=== PATIENT | female | born 1995 | race Caucasian/White ===

== ENCOUNTER 2016-07-16 19:06 | Emergency (ER) | payer SELFPAY ==
[~2016-07-16] VITALS: Ht 162.6 cm; Wt 53.0 kg
[2016-07-16 19:17] VITALS: Ht 162.6 cm; Wt 53.0 kg
[2016-07-16] MEDS ORDERED: METOCLOPRAMIDE 10 MG INJ IV STA (20:21)
[2016-07-16] MEDS ORDERED: DIPHENHYDRAMINE 50 MG INJ IV STA (20:21)
[2016-07-16] MEDS ORDERED: KETOROLAC 30 MG INJ IV STA (20:21)
[2016-07-16] MEDS ORDERED: SOD CHLORIDE 0.9% 1,000 ML IV STA (20:21)
[2016-07-16 21:17] LABS: BASOPHILS % 0.2 % (0.0-2.0); EOSINOPHILS # 0.2 10^3/ul (0.0-0.5); HEMATOCRIT 41.4 % (37.0-47.0); HEMOGLOBIN 13.8 g/dl (12.0-16.0); LYMPHOCYTES # 2.5 10^3/ul (0.8-2.9); LYMPHOCYTES % 30.6 % (18.0-55.0); MEAN CORPUSCULAR HEMOGLOBIN 30.2 pg (29.0-33.0); MEAN CORPUSCULAR HGB CONC 33.4 g/dl (32.0-37.0); MEAN CORPUSCULAR VOLUME 90.5 fl (72.0-104.0); MEAN PLATELET VOLUME 9.3 fl (7.4-10.4); MONOCYTE # 0.8 10^3/ul (0.3-0.9); MONOCYTES % 9.3 % (0.0-13.0); NEUTROPHIL # 4.7 10^3/ul (1.6-7.5); NEUTROPHILS % 57.9 % (30.0-74.0); PLATELET COUNT 242 10^3/UL (140-440); RED BLOOD COUNT 4.57 10^6/ul (4.20-5.40); RED CELL DISTRIBUTION WIDTH 13.4 % (11.5-14.5); UNCORRECTED WBC 8.1 10^3/ul (4.8-10.8); WHITE BLOOD COUNT 8.1 10^3/ul (4.8-10.8)
[2016-07-16 21:26] LABS: POTASSIUM 3.5 mmol/L (3.5-5.1)
[2016-07-16 21:27] LABS: CONDITION 1
[2016-07-16 21:28] LABS: CREATININE 0.61 mg/dl (0.44-1.00)
[2016-07-16] MEDS ORDERED: ASPI1TAB30 PO (22:10)
--- NOTE | 2016-07-16 22:15 | ERD ---
ER Documentation Chief Complaint Date/Time DATE: 07/16/16 TIME: 22:12 Chief Complaint headache, vomiting, weakness, dizziness HPI Patient is a 21-year-old female who presents complaining of headache with vomiting and weakness and dizziness feels like the room is spinning. Headache is frontal and bilateral 6 out of 10 throbbing. She has had headaches in the past and this feels similar however she is concerned and wants to make sure she is not anemic as she has been anemic in the past. Denies any visual changes. Denies abdominal pain. She states her last menstrual period ended today. She takes iron at home. ROS All systems reviewed and are negative except as per history of present illness. Medications Home Meds Active Scripts Aspirin/Acetaminophen/Caffeine (Excedrin Migraine Caplet) 1 Each Tablet, 1 EACH PO Q6, #30 TAB Prov:LULY FRANK PA-C 07/16/16 Allergies Allergies: Coded Allergies: No Known Allergy (Unverified , 10/30/14) PMhx/Soc Medical and Surgical Hx: pt denies Surgical Hx History of Surgery: No Anesthesia Reaction: No Hx Neurological Disorder: No Hx Respiratory Disorders: No Hx Cardiac Disorders: No Hx Psychiatric Problems: Yes (anxiety, depression, anemia) Hx Miscellaneous Medical Probl: No Hx Alcohol Use: No Hx Substance Use: No Hx Tobacco Use: No Smoking Status: Never smoker FmHx Family History: No diabetes Physical Exam Vitals Vital Signs Date Time Temp Pulse Resp B/P Pulse Ox O2 Delivery O2 Flow Rate FiO2 07/16/16 19:17 98.8 87 20 137/82 97 Physical Exam General: well developed, well nourished, alert, nontoxic, no distress, smells strongly of marijuana Head: normocephalic, atraumatic Eyes: PERRL, normal conjunctiva Neck: Supple, nontender, no lymphadenopathy, no midline tenderness Respiratory: Clear to auscaultation bilaterally, speaks in full sentences, no use of accesory muscles or labored breathing, no rales, ronchi, or wheezing Cardiovascular: RRR, No murmurs GI: soft, non tender, non distended, negative murphys sign, negative mcburneys point tenderness, no cva tenderness bilaterally, no rebound or guarding Skin: no visible rashes Neuro: CN 2-12 intact, normal speech, normal gait, no cerebellar signs Result Diagram: 1/5/17 2040 1/5/17 2040 Results 24 hrs Laboratory Tests Test 07/16/16 20:40 Anion Gap 19 Basophils # 0.010^3/ul Basophils % 0.2% Blood Urea Nitrogen 9mg/dl Calcium Level 9.0mg/dl Carbon Dioxide Level 29mmol/L Chloride Level 99mmol/L Creatinine 0.61mg/dl Eosinophils # 0.210^3/ul Eosinophils % 2.0% Glucose Level 119mg/dl Hematocrit 41.4% Hemoglobin 13.8g/dl Lymphocytes # 2.510^3/ul Lymphocytes % 30.6% Mean Corpuscular Hemoglobin 30.2pg Mean Corpuscular Hemoglobin Concent 33.4g/dl Mean Corpuscular Volume 90.5fl Mean Platelet Volume 9.3fl Monocytes # 0.810^3/ul Monocytes % 9.3% Neutrophils # 4.710^3/ul Neutrophils % 57.9% Nucleated Red Blood Cells # 0.010^3/ul Nucleated Red Blood Cells % 0.0/100WBC Platelet Count 98858^3/UL Potassium Level 3.5mmol/L Red Blood Count 4.5710^6/ul Red Cell Distribution Width 13.4% Sodium Level 143mmol/L White Blood Count 8.110^3/ul Current Medications Medications (Trade) Dose Ordered Sig/Betty Route PRN Reason Start Time Stop Time Status Last Admin Dose Admin Sodium Chloride (NS) 1,000 ml @ 1,000 mls/hr Q1H STAT IV 07/16/16 20:21 07/16/16 21:20 DC 07/16/16 20:35 Metoclopramide HCl (Reglan) 10 mg ONCE STAT IV 07/16/16 20:21 07/16/16 20:22 DC 07/16/16 20:35 Ketorolac Tromethamine (Toradol) 30 mg ONCE STAT IV 07/16/16 20:21 07/16/16 20:22 DC 07/16/16 20:35 Diphenhydramine HCl (Benadryl) 12.5 mg ONCE STAT IV 07/16/16 20:21 07/16/16 20:22 DC 07/16/16 20:35 Procedures/MDM Patient presents with headache and dizziness and weakness. She has a history of anemia which she takes iron for at home and is concerned and wants to make sure she is not severely anemic at this time. Her labs are unremarkable and there is no evidence of anemia. She was given IV fluids, Toradol, Benadryl, and Reglan and had complete resolution of her pain. She was discharged with Excedrin. I have low suspicion for any acute intracranial pathology and therefore no CT imaging was ordered as I do not believe the risks of radiation outweigh the benefits at this time. Recommended this patient follow up with her primary care doctor within 48 hours or return to the emergency room for any worsening of symptoms. However this time I do believe there is suitable for outpatient management. I answered all their questions and they agreed with the plan and were discharged home. Departure Diagnosis: Primary Impression: Headache Condition: Stable Patient Instructions: Self-Care for Headaches Additional Instructions: Call your primary care doctor TOMORROW for an appointment during the next 1-2 days.See the doctor sooner or return here if your condition worsens before your appointment time. LULY FRANK PA-C Jul 16, 2016 22:15
[2016-07-16 22:24] VITALS: BP 118/67; PULSE 64; RESP 18; TEMP 98
== END 2016-07-16 22:25 | disposition home or self-care (01) ==
LOC: FTE 19:06
DX: R51 Headache (principal); Z79.82 Long term (current) use of aspirin
CPT/HCPCS: 80048; 85025; 96374; 96375; 99284; J1200; J1885; J2765; J7030

== ENCOUNTER 2017-03-01 22:29 | Emergency (ER) | payer MEDICAID ==
[~2017-03-01] VITALS: Ht 160 cm; Wt 51.0 kg
[~2017-03-01 22:29] MED LIST: ASPI1TAB30 PO
[2017-03-01 22:33] VITALS: Ht 160 cm; Wt 51.0 kg
[2017-03-01] MEDS ORDERED: ONDANSETRON (ODT) 4 MG TAB ODT STA (23:30)
[2017-03-01 23:59] LABS: BASOPHILS % 0.3 % (0.0-2.0); EOSINOPHILS # 0.2 10^3/ul (0.0-0.5); EOSINOPHILS % 2.5 % (0.0-7.0); HEMATOCRIT 38.9 % (37.0-47.0); HEMOGLOBIN 13.4 g/dl (12.0-16.0); LYMPHOCYTES # 3.1 10^3/ul (0.8-2.9); LYMPHOCYTES % 45.1 % (15.0-51.0); MEAN CORPUSCULAR HEMOGLOBIN 31.3 pg (29.0-33.0); MEAN CORPUSCULAR HGB CONC 34.4 g/dl (32.0-37.0); MEAN CORPUSCULAR VOLUME 90.9 fl (82.0-101.0); MEAN PLATELET VOLUME 10.9 fl (7.4-10.4); MONOCYTE # 0.6 10^3/ul (0.3-0.9); MONOCYTES % 8.4 % (0.0-11.0); NEUTROPHILS % 43.4 % (39.0-77.0); PLATELET COUNT 241 10^3/UL (140-415); RED BLOOD COUNT 4.28 10^6/ul (4.20-5.40); RED CELL DISTRIBUTION WIDTH 12.3 % (11.5-14.5); WHITE BLOOD COUNT 6.9 10^3/ul (4.8-10.8)
--- NOTE | 2017-03-02 00:05 | ERD ---
ER Documentation Chief Complaint Date/Time DATE: 03/02/17 TIME: 00:03 Chief Complaint P[place] SINCE AM. VOMIT X1 STATES "BALLS OF BLOOD CAME OUT". HPI 22-year-old female presents here in emergency department for complaints of headache on-and-off for the last month, worse today. Patient describes the pain as throbbing pain, 6/10 scale, not better or worse with eating. He started to have vomiting episode this morning. Has been vomiting several times today. Today , she saw that may be there is some blood tinged ball that came out of hers, when she vomited. Patient denies any diarrhea or constipation. Patient denies any black stool. Patient denies any abdominal pain. Patient denies any fever or chills. ROS All systems reviewed and are negative except as per history of present illness. Medications Home Meds Active Scripts Aspirin/Acetaminophen/Caffeine (Excedrin Migraine Caplet) 1 Each Tablet, 1 EACH PO Q6, #30 TAB Prov:LULY FRANK PA-C 07/16/16 Allergies Allergies: Coded Allergies: No Known Allergy (Unverified , 10/30/14) PMhx/Soc History of Surgery: No Anesthesia Reaction: No Hx Neurological Disorder: No Hx Respiratory Disorders: No Hx Cardiac Disorders: No Hx Psychiatric Problems: Yes (anxiety, depression, anemia) Hx Miscellaneous Medical Probl: No Hx Alcohol Use: No Hx Substance Use: No Hx Tobacco Use: No Smoking Status: Never smoker FmHx Family History: No coronary disease, No diabetes, No other Physical Exam Vitals Vital Signs Date Time Temp Pulse Resp B/P Pulse Ox O2 Delivery O2 Flow Rate FiO2 03/01/17 22:33 97.6 66 18 132/92 100 Physical Exam GENERAL: The patient is well developed and appropriate for usual state of health, in no apparent distress. CHEST: Clear to auscultation bilaterally. There are no rales, wheezes or rhonchi. HEART: Regular rate and rhythm. No murmurs, clicks, rubs or gallops. No S3 or S4. ABDOMEN: Soft, nontender and nondistended. Good bowel sounds. No rebound or guarding. No gross peritonitis. No gross organomegaly or masses. No Bentley sign or McBurney point tenderness. BACK: No midline or flank tenderness. EXTREMITIES: Equal pulses bilaterally. There is no peripheral clubbing, cyanosis or edema. No focal swelling or erythema. Full range of motion. Grossly neurovascularly intact. NEURO: Alert and oriented. Cranial nerves 2-12 intact. Motor strength in all 4 extremities with 5/5 strength. Sensation grossly intact. Normal speech and gait. SKIN: There is no apparent rash or petechia. The skin is warm and dry. HEMATOLOGIC AND LYMPHATIC: There is no evidence of excessive bruising or lymphedema. No gross cervical, axillary, or inguinal lymphadenopathy. Result Diagram: 03/01/178 03/01/172337 Results 24 hrs Laboratory Tests Test 03/01/17 23:38 03/01/17 23:43 White Blood Count 6.910^3/ul Red Blood Count 4.2810^6/ul Hemoglobin 13.4g/dl Hematocrit 38.9% Mean Corpuscular Volume 90.9fl Mean Corpuscular Hemoglobin 31.3pg Mean Corpuscular Hemoglobin Concent 34.4g/dl Red Cell Distribution Width 12.3% Platelet Count 30931^3/UL Mean Platelet Volume 10.9fl Neutrophils % 43.4% Lymphocytes % 45.1% Monocytes % 8.4% Eosinophils % 2.5% Basophils % 0.3% Nucleated Red Blood Cells % 0.0/100WBC Neutrophils # (Manual) 310^3/ul Lymphocytes # 3.110^3/ul Monocytes # 0.610^3/ul Eosinophils # 0.210^3/ul Basophils # 0.010^3/ul Nucleated Red Blood Cells # 0.010^3/ul Sodium Level 143mmol/L Potassium Level 3.8mmol/L Chloride Level 99mmol/L Carbon Dioxide Level 29mmol/L Anion Gap 19 Blood Urea Nitrogen 5mg/dl Creatinine 0.57mg/dl Glucose Level 95mg/dl Calcium Level 9.7mg/dl Total Bilirubin 0.5mg/dl Direct Bilirubin 0.00mg/dl Indirect Bilirubin 0.5mg/dl Aspartate Amino Transf (AST/SGOT) 21IU/L Alanine Aminotransferase (ALT/SGPT) 29IU/L Alkaline Phosphatase 69IU/L Total Protein 7.1g/dl Albumin 4.5g/dl Globulin 2.60g/dl Albumin/Globulin Ratio 1.73 Urine Color YELLOW Urine Clarity SLIGHTLY CLOUDY Urine pH 6.0 Urine Specific Kathleen 1.014 Urine Ketones NEGATIVEmg/dL Urine Nitrite NEGATIVEmg/dL Urine Bilirubin NEGATIVEmg/dL Urine Urobilinogen NEGATIVEmg/dL Urine Leukocyte Esterase TRACELeu/ul Urine Microscopic RBC 0/HPF Urine Microscopic WBC 1/HPF Urine Squamous Epithelial Cells FEW/HPF Urine Mucus FEW/HPF Urine Hemoglobin 1+mg/dL Urine Glucose NEGATIVEmg/dL Urine Total Protein NEGATIVEmg/dl Current Medications Medications (Trade) Dose Ordered Sig/Betty Route PRN Reason Start Time Stop Time Status Last Admin Dose Admin Ondansetron HCl (Zofran Odt) 4 mg ONCE STAT ODT 03/01/17 23:30 03/01/17 23:33 DC 03/01/17 23:44 Patient was given Zofran here in the emergency department. After treatment, patient was able to tolerate po fluids here in the emergency department without any vomiting. There is no signs and symptoms of dehydration. PROCEDURE: CT HEAD WITHOUT CONTRAST: CLINICAL INDICATION: 22-year of age female, headache . COMPARISON: None available. TECHNIQUE: CT of the head was performed without IV contrast. Sagittal and coronal reformations were constructed. Dose information: The estimated radiation dose (CTDI vol mGy) for each series in this exam is . The estimated cumulative dose (DLP mGy-cm) is . FINDINGS: Parenchyma: Negative for evidence of acute intracranial hemorrhage, mass effect or large territory infarct. Ventricles and extra-axial spaces: Appropriate for age. Visualized paranasal sinuses: Clear. Mastoid air cells: Clear. Bones: No focal abnormality. Additional comment: None. IMPRESSION: Normal CT of the brain for age. Negative for evidence of an acute abnormality. Cause for headache is not evident. RPTAT: HCTS Physician Farzana Date Time Electronically viewed and signed by Physician Farzana on 03/02/2017 00: 09 Procedures/[facility] Medical Decision Making: Patient symptoms are consistent with migraine headache , possible tension headache. There is low suspicion for neurological emergencies at this time since patients neurologic exam is normal. Patient did not have any altered level consciousness, vomiting, changes in balance or memory and did not have any head injury. Patients CT scan of the head does not show any neurological emergencies at this time. Patient's vomiting nonspecific, can be also be from the migraine, can be also viral. No signs of any abdominal emergencies. Patient's abdominal exam is normal. Rx: Fioricet with codeine, Zofran Dispostion: Home. Stable Departure Diagnosis: Primary Impression: Headache Headache type: unspecified Headache chronicity pattern: acute headache Intractability: not intractable Qualified Code: R51 - Acute nonintractable headache, unspecified headache type Additional Impression: Vomiting Vomiting type: unspecified Vomiting Intractability: unspecified Nausea presence: unspecified Qualified Code: R11.10 - Vomiting, intractability of vomiting not specified, presence of nausea not specified, unspecified vomiting type Condition: Stable Patient Instructions: Self-Care for Headaches, Vomiting (6Y-Adult) JOY SHARMA NP Mar 02, 2017 00:04
[2017-03-02 00:06] LABS: ADD UMIC YES; UR ASCORBIC ACID NEGATIVE (NEGATIVE); UR BILIRUBIN (Dip) NEGATIVE (NEGATIVE); UR BLOOD (Dip) 1+ mg/dL (NEGATIVE); UR CLARITY SLIGHTLY CLOUDY (CLEAR); UR COLOR YELLOW (YELLOW); UR GLUCOSE (Dip) NEGATIVE (NEGATIVE); UR KETONES (Dip) NEGATIVE (NEGATIVE); UR LEUKOCYTE ESTERASE (Dip) TRACE Leu/ul (NEGATIVE); UR MUCUS FEW /HPF (NONE SEEN); UR NITRITE (Dip) NEGATIVE (NEGATIVE); UR RBC 0 /HPF (0-5); UR SPECIFIC GRAVITY (Dip) 1.014 (1.003-1.030); UR SQUAMOUS EPITHELIAL CELL FEW /HPF (FEW); UR TOTAL PROTEIN (Dip) NEGATIVE (NEGATIVE); UR UROBILINOGEN (Dip) NEGATIVE (NEGATIVE)
--- NOTE | 2017-03-02 00:10 | RADRPT ---
AMENDMENT: 03/13/2017 11:18:13 PM Karen Jean M.D One or more of the following dose reduction techniques were used: - Automated exposure control. - Adjustment of the mA and/or kV according to patient size. - Use of iterative reconstruction technique. Sagittal and coronal reformations were constructed. PROCEDURE: CT HEAD WITHOUT CONTRAST: CLINICAL INDICATION: 22-year of age female, headache . COMPARISON: None available. TECHNIQUE: CT of the head was performed without IV contrast. Sagittal and coronal reformations were constructed. Dose information: The estimated radiation dose (CTDI vol mGy) for each series in this exam is . T he estimated cumulative dose (DLP mGy-cm) is . FINDINGS: Parenchyma: Negative for evidence of acute intracranial hemorrhage, mass effect or large territory i nfarct. Ventricles and extra-axial spaces: Appropriate for age. Visualized paranasal sinuses: Clear. Mastoid air cells: Clear. Bones: No focal abnormality. Additional comment: None. IMPRESSION: Normal CT of the brain for age. Negative for evidence of an acute abnormality. Cause for headache i s not evident. RPTAT: HCTS Physician Farzana Date Time Electronically viewed and signed by Physician Farzana on 03/13/2017 23:19 /
[2017-03-02 00:48] LABS: ALBUMIN 4.5 g/dl (3.3-4.9); BILIRUBIN,INDIRECT 0.5 mg/dl (0-1.1); BILIRUBIN,TOTAL 0.5 mg/dl (0.2-1.3); CALCIUM 9.7 mg/dl (8.4-10.2); CREATININE 0.57 mg/dl (0.44-1.00); POTASSIUM 3.8 mmol/L (3.5-5.1); TOTAL PROTEIN 7.1 g/dl (6.1-8.1)
[2017-03-02 00:49] LABS: ALBUMIN/GLOBULIN RATIO 1.73
[2017-03-02] MEDS ORDERED: ONDA4TAB14 PO (01:15)
[2017-03-02] MEDS ORDERED: BUTA1CAP39 PO (01:15)
== END 2017-03-02 01:16 | disposition home or self-care (01) ==
LOC: FTE 22:29
DX: R51 Headache (principal); R11.10 Vomiting, unspecified
CPT/HCPCS: 70450; 80053; 81001; 85025; Z7502; Z7610

== ENCOUNTER 2018-05-03 11:20 | Emergency (ER) | END 2018-05-03 14:19 | disposition home or self-care (01) ==